=== PATIENT | female | born 1985 | race African-American/Black ===

== ENCOUNTER 2016-05-03 10:20 | Emergency (ER) | payer SELFPAY ==
[~2016-05-03] VITALS: Ht 152.4 cm; Wt 95.3 kg
[~2016-05-03 10:20] MED LIST: SULF1TAB24 PO
[2016-05-03] MEDS ORDERED: PREDNISONE 20 MG TABLET PO ONE (11:00)
[2016-05-03] MEDS ORDERED: DIPHENHYDRAMINE HCL 25 MG CAPSULE PO ONE (11:00)
[2016-05-03] MEDS ORDERED: FAMOTIDINE 20 MG TABLET. PO ONE (11:00)
[2016-05-03 11:15] VITALS: BP 162/104
--- NOTE | 2016-05-03 11:22 | PHYS DOC ---
Past Medical History Past Medical History: Asthma, Hypertension Additional Past Medical Histor: pre-eclampsia with pregnancies Past Surgical History: , Tubal ligation Alcohol Use: None Drug Use: None Adult General Chief Complaint Chief Complaint: ALLERGIC REACTION HPI HPI Patient is a 31 year old female with history of hypertension who presents today with an allergic reaction to carrots. Patient states yesterday she went to a local restaurant and ordered a salad, she states she informed them she is allergic to carrots, she states as she was eating the salad and noted some carrots in it. Patient states her throat started itching she developed a rash, she states her lips were also swollen, patient states she went home and took 2 Benadryl went to bed, she states her symptoms are slightly better but she is still itching. Review of Systems Review of Systems Constitutional: Denies fever or chills [] Eyes: Denies change in visual acuity, redness, or eye pain [] HENT: Denies nasal congestion or sore throat [] Respiratory: Denies cough or shortness of breath [] Cardiovascular: No additional information not addressed in HPI [] GI: Denies abdominal pain, nausea, vomiting, bloody stools or diarrhea [] : Denies dysuria or hematuria [] Musculoskeletal: Denies back pain or joint pain [] Integument: Rash and itching Neurologic: Denies headache, focal weakness or sensory changes [] Endocrine: Denies polyuria or polydipsia [] Current Medications Current Medications Current Medications Medications (Trade) Dose Ordered Sig/Leonel Start Time Stop Time Status Last Admin Dose Admin Diphenhydramine HCl (Benadryl) 25 mg 1X ONCE 05/03/16 11:00 05/03/16 11:04 DC Famotidine (Pepcid) 20 mg 1X ONCE 05/03/16 11:00 05/03/16 11:04 DC 05/03/16 11:21 20 MG Prednisone (Prednisone) 60 mg 1X ONCE 05/03/16 11:00 05/03/16 11:04 DC 05/03/16 11:21 60 MG Allergies Allergies Allergies Coded Allergies Type Severity Reaction Last Updated Verified carrot Allergy Severe Anaphylaxis 12/15/14 Yes Soap Allergy Intermediate Rash 08/12/15 Yes povidone-iodine Allergy Intermediate Rash 08/12/15 Yes Physical Exam Physical Exam Constitutional: Well developed, well nourished, no acute distress, non-toxic appearance. [] HENT: Normocephalic, atraumatic, bilateral external ears normal, oropharynx moist, no oral exudates, nose normal. No lip swelling noted, no throat swelling noted. Eyes: PERRLA, EOMI, conjunctiva normal, no discharge. [] Neck: Normal range of motion, no tenderness, supple, no stridor. [] Cardiovascular:Heart rate regular rhythm, no murmur [] Lungs & Thorax: Bilateral breath sounds clear to auscultation [] Abdomen: Bowel sounds normal, soft, no tenderness, no masses, no pulsatile masses. [] Skin: Warm, dry, no erythema, no rash, patient is actively itching, Back: No tenderness, no CVA tenderness. [] Extremities: No tenderness, no cyanosis, no clubbing, ROM intact, no edema. [] Neurologic: Alert and oriented X 3, normal motor function, normal sensory function, no focal deficits noted. [] Psychologic: Affect normal, judgement normal, mood normal. [] EKG EKG [] Radiology/Procedures Radiology/Procedures [] Course & Med Decision Making Course & Med Decision Making Pertinent Labs and Imaging studies reviewed. (See chart for details) Patient is in the ED with a rash due to an allergic reaction to carrots that began yesterday after eating carrots at a local restaurant. She is actively itching, she has no rash anywhere on her body. She has no lip or throat swelling , she has no difficulty breathing. She was given prednisone, Benadryl and Pepcid and discharged with the same. Her blood pressure was 162/104, she states she takes amlodipine and she ran out of it, I wrote her prescription for 2 weeks hopefully she can get into her PCP to get more refills. Dragon Disclaimer Dragon Disclaimer This electronic medical record was generated, in whole or in part, using a voice recognition dictation system. Departure Departure Impression: Primary Impression: Allergic reaction to food Additional Impressions: Medication refill Accelerated hypertension Disposition: 01 HOME, SELF-CARE Condition: STABLE Referrals: NO PCP (PCP) Follow-up with your own doctor in the next 7 days and get blood pressure medication refill Patient Instructions: Food Allergy, [id number] Additional Instructions: You were seen for an allergic reaction to carrots, please do not eat carrots. Take Benadryl every 4 hours until symptoms are gone. Take Pepcid every day until symptoms are gone. Complete your prednisone. Come back to the emergency room if symptoms worsen. Follow-up with your own doctor for high blood pressure. Scripts Prednisone 50 Mg Tablet1 Tab PO DAILY #4 TAB Prov:FEDERICO ULRICH APRN 05/03/16 Famotidine (Pepcid)20 Mg [id number] Mg PO DAILY #7 TAB Prov:FEDERICO ULRICH APRN 05/03/16 Amlodipine Besylate 10 Mg [id number] Mg PO DAILY #14 TAB Prov:FEDERICO ULRICH APRN 05/03/16 Problem Qualifiers Primary Impression: Allergic reaction to food Encounter type: initial encounter Qualified Code: T78.1XXA - Other adverse food reactions, not elsewhere classified, initial encounter FEDERICO ULRICH APRN May 03, 2016 11:22
[2016-05-03] MEDS ORDERED: FAMO-63 PO (11:30)
[2016-05-03] MEDS ORDERED: PRED50TA PO (11:30)
[2016-05-03] MEDS ORDERED: AMLO10TA2 PO (11:30)
== END 2016-05-03 11:38 | disposition home or self-care (01) ==
LOC: ER 10:20
DX: T78.1XXA Other adverse food reactions, not elsewhere classified, initial encounter (principal); L29.9 Pruritus, unspecified; I10 Essential (primary) hypertension; J45.909 Unspecified asthma, uncomplicated; X58.XXXA Exposure to other specified factors, initial encounter; Y93.89 Activity, other specified; Y99.8 Other external cause status; Y92.89 Other specified places as the place of occurrence of the external cause; Z91.041 Radiographic dye allergy status; Z88.8 Allergy status to other drugs, medicaments and biological substances; Z91.018 Allergy to other foods
CPT/HCPCS: 99283; J7512

== ENCOUNTER 2016-10-06 09:28 | Emergency (ER) | payer SELFPAY ==
[~2016-10-06] VITALS: Ht 144.8 cm; Wt 98.9 kg
[~2016-10-06 09:28] MED LIST changes: +AMLO10TA2 PO; +FAMO-63 PO; +HYDR-971 PO; +PRED50TA PO
[2016-10-06 09:37] VITALS: BP 144/80
[2016-10-06] MEDS ORDERED: CLIN150C14 PO (10:35)
[2016-10-06] MEDS ORDERED: FLUC150T PO (10:35)
--- NOTE | 2016-10-06 10:35 | PHYS DOC ---
Past Medical History Past Medical History: Asthma, Hypertension Additional Past Medical Histor: pre-eclampsia with pregnancies Past Surgical History: , Tubal ligation Alcohol Use: None Drug Use: None Adult General Chief Complaint Chief Complaint: EYE PROBLEMS HPI HPI Patient is a 31 year old female presents emergency department stating that she' s been having some pain and discomfort in the lower lid of her left eye. Patient states that she's been placing warm packs on the area. She's been taken Benadryl. She states the pain and discomfort started on Thursday. She denies any visual difficulty although she states that she is having irritation with eye due to the swelling. She states there is swelling down into her cheek area. She denies any drainage or discharge. She denies any upper respiratory infection or congestion. Review of Systems Review of Systems Constitutional: Denies fever or chills [] Eyes: Denies change in visual acuity, redness, complaint of left eye lower lid discomfort. HENT: Denies nasal congestion or sore throat [] Respiratory: Denies cough or shortness of breath [] Cardiovascular: No additional information not addressed in HPI [] GI: Denies abdominal pain, nausea, vomiting, bloody stools or diarrhea [] : Denies dysuria or hematuria [] Musculoskeletal: Denies back pain or joint pain [] Integument: Denies rash or skin lesions [] Neurologic: Denies headache, focal weakness or sensory changes [] Endocrine: Denies polyuria or polydipsia [] Allergies Allergies Allergies Coded Allergies Type Severity Reaction Last Updated Verified carrot Allergy Severe Anaphylaxis 12/15/14 Yes Soap Allergy Intermediate Rash 08/12/15 Yes povidone-iodine Allergy Intermediate Rash 08/12/15 Yes Physical Exam Physical Exam Constitutional: Well developed, well nourished, no acute distress, non-toxic appearance. [] HENT: Normocephalic, atraumatic, bilateral external ears normal, oropharynx moist, no oral exudates, nose normal. [] Eyes: PERRLA, EOMI, conjunctiva normal, no discharge. Patient was noted to have a stye on the lower lid of the left eye. She does have some swelling down into the cheek area with redness and tenderness noted. There is no drainage or discharge noted from the stye. Neck: Normal range of motion, no tenderness, supple, no stridor. [] Cardiovascular:Heart rate regular rhythm, no murmur [] Lungs & Thorax: Bilateral breath sounds clear to auscultation [] Skin: Warm, dry, no erythema, no rash. [] Back: No tenderness Extremities: No tenderness, no cyanosis, no clubbing, ROM intact, no edema. [] Neurologic: Alert and oriented X 3, normal motor function, normal sensory function, no focal deficits noted. [] Psychologic: Affect normal, judgement normal, mood normal. [] Current Patient Data Vital Signs Vital Signs Date Time Temp Pulse Resp B/P (MAP) Pulse Ox O2 Delivery O2 Flow Rate FiO2 10/06/16 09:37 98.3 89 18 99 Room Air 98.3 EKG EKG [] Radiology/Procedures Radiology/Procedures [] Course & Med Decision Making Course & Med Decision Making Pertinent Labs and Imaging studies reviewed. (See chart for details) Spoke with the patient about continuing warm moist packs to the left eye 4-5 times a day for 20 minutes at a time. Patient will be placed on antibiotics, clindamycin. Patient states that she gets yeast infections anytime she is on any antibiotics. She'll be provided with Diflucan. Patient will be provided with a work note today as she was unable to drive herself to [facility] and [place] to work. Patient was encouraged to use Tylenol or ibuprofen for pain and discomfort. Signs and symptoms to return back to emergency department has been provided. Patient agrees with discharge instructions treatment regimens and follow-up recommendations. [] Dragon Disclaimer Dragon Disclaimer This electronic medical record was generated, in whole or in part, using a voice recognition dictation system. Departure Departure Impression: Primary Impression: Hordeolum externum of left lower eyelid Disposition: HOME, SELF-CARE Condition: STABLE Referrals: NO PCP (PCP) Patient Instructions: Sty Additional Instructions: Warm moist packs to the left eye 4-5 times a day for 20 minutes at a time. Tylenol or ibuprofen for pain and discomfort. Antibiotics as prescribed. Follow-up with bilingual sales representative in the next week. Return back to emergency prior signs and symptoms that become worse. Scripts Fluconazole (DIFLUCAN) 150 Mg Tablet 1 TAB PO ONCE, #1 TAB 1 Refill Take 1 tablet when the symptoms start and may be repeated in 1 week Prov: GALE RECIO APRN 10/06/16 Clindamycin Hcl (CLINDAMYCIN HCL) 150 Mg Capsule 3 CAP PO TID for 10 Days, CAP Prov: GALE RECIO APRN 10/06/16 GALE RECIO APRN Oct 06, 2016 10:35
[2016-10-06] MEDS ORDERED: IBUPROFEN 800 MG TABLET. PO ONE ×2 (10:45→11:00)
== END 2016-10-06 10:49 | disposition home or self-care (01) ==
LOC: ER 09:28
DX: H00.015 Hordeolum externum left lower eyelid (principal); I10 Essential (primary) hypertension; J45.909 Unspecified asthma, uncomplicated; Z91.041 Radiographic dye allergy status; Z91.018 Allergy to other foods; Z88.8 Allergy status to other drugs, medicaments and biological substances
CPT/HCPCS: 99283

== ENCOUNTER 2016-11-25 09:26 | Emergency (ER) | payer SELFPAY ==
[~2016-11-25] VITALS: Ht 147.3 cm; Wt 98.9 kg
[~2016-11-25 09:26] MED LIST changes: +CLIN150C14 PO; +FLUC150T PO
[2016-11-25] MEDS ORDERED: IBUPROFEN 800 MG TABLET. PO ONE (10:00)
[2016-11-25 10:12] LABS: BILIRUBIN,URINE NEGATIVE (NEG); GLUCOSE,URINE NEGATIVE (NEG); NITRITE,URINE NEGATIVE (NEG); PH,URINE 8.5; PROTEIN,URINE 30 mg/dL (NEG-TRACE)
[2016-11-25 10:32] LABS: BACTERIA,URINE 0 /HPF (0-FEW); RBC,URINE TNTC /HPF (0-2)
[2016-11-25 10:34] LABS: BASO % 0 % (0-3); EOS % 3 % (0-3); HEMATOCRIT 24.4 % (36.0-47.0); HEMOGLOBIN 7.3 g/dL (12.0-15.5); LYMPH # 1.6 x10^3/uL (1.0-4.8); LYMPH % 32 % (24-48); MEAN CORPUSCULAR HEMOGLOBIN 16 pg (25-35); MEAN CORPUSCULAR HGB CONC 30 g/dL (31-37); MEAN CORPUSCULAR VOLUME 53 fL (79-100); MONO % 7 % (0-9); NEUT % 59 % (31-73); PLATELET COUNT 320 x10^3/uL (140-400); RED BLOOD COUNT 4.57 x10^6/uL (3.50-5.40); RED CELL DISTRIBUTION WIDTH 19.7 % (11.5-14.5); WHITE BLOOD COUNT 5.1 x10^3/uL (4.0-11.0)
[2016-11-25] MEDS ORDERED: PROM25TA10 PO (10:41)
[2016-11-25] MEDS ORDERED: TRAM-48 PO (10:41)
--- NOTE | 2016-11-25 10:41 | PHYS DOC ---
Past Medical History Past Medical History: Asthma, CVA, Hypertension Additional Past Medical Histor: pre-eclampsia with pregnancies Past Surgical History: , Tubal ligation Alcohol Use: None Drug Use: None Adult General Chief Complaint Chief Complaint: PELVIC PAIN HPI HPI Patient is a 31 year old female with history of hypertension and fibrosis presents today complaining of bilateral pelvic pain moderate in nature that began 3 days ago. Patient stated this is a typical pain during her menstrual cycle which began 3 days ago. Patient states she is waiting to be referred to by her own doctor to be seen by an GROUP SALES MANAGER. Patient denies soaking more than 1 feminine pad an hour. She states her periods are typically heavy and today's bleeding is not unusual. Patient denies any urgency frequency or dysuria. Review of Systems Review of Systems Constitutional: Denies fever or chills [] Eyes: Denies change in visual acuity, redness, or eye pain [] HENT: Denies nasal congestion or sore throat [] Respiratory: Denies cough or shortness of breath [] Cardiovascular: No additional information not addressed in HPI [] GI: Pelvic pain and vaginal bleeding : Denies dysuria or hematuria [] Musculoskeletal: Denies back pain or joint pain [] Integument: Denies rash or skin lesions [] Neurologic: Denies headache, focal weakness or sensory changes [] Endocrine: Denies polyuria or polydipsia [] Current Medications Current Medications Current Medications Medications (Trade) Dose Ordered Sig/Leonel Start Time Stop Time Status Last Admin Dose Admin Azithromycin (Zithromax) 1,000 mg 1X ONCE 11/25/16 10:45 11/25/16 10:47 DC 11/25/16 11:19 1,000 MG Ceftriaxone Sodium (Rocephin Im) 250 mg 1X ONCE 11/25/16 10:45 11/25/16 10:47 DC 11/25/16 11:19 250 MG Ibuprofen (Motrin) 800 mg 1X ONCE 11/25/16 10:00 11/25/16 10:04 DC Allergies Allergies Allergies Coded Allergies Type Severity Reaction Last Updated Verified carrot Allergy Severe Anaphylaxis 12/15/14 Yes Soap Allergy Intermediate Rash 08/12/15 Yes povidone-iodine Allergy Intermediate Rash 08/12/15 Yes Physical Exam Physical Exam Constitutional: Well developed, well nourished, no acute distress, non-toxic appearance. [] HENT: Normocephalic, atraumatic, bilateral external ears normal, oropharynx moist, no oral exudates, nose normal. [] Eyes: PERRLA, EOMI, conjunctiva normal, no discharge. [] Neck: Normal range of motion, no tenderness, supple, no stridor. [] Cardiovascular:Heart rate regular rhythm, no murmur [] Lungs & Thorax: Bilateral breath sounds clear to auscultation [] Abdomen: Bowel sounds normal, soft, no tenderness, no masses, no pulsatile masses. [] Pelvic exam External pelvic appears normal, cervix not well visualized. Small amount of bright red blood in the cervical OS, no adnexal tenderness, no CMT. Skin: Warm, dry, no erythema, no rash. [] Back: No tenderness, no CVA tenderness. [] Extremities: No tenderness, no cyanosis, no clubbing, ROM intact, no edema. [] Neurologic: Alert and oriented X 3, normal motor function, normal sensory function, no focal deficits noted. [] Psychologic: Affect normal, judgement normal, mood normal. [] Current Patient Data Vital Signs Vital Signs Date Time Temp Pulse Resp B/P (MAP) Pulse Ox O2 Delivery O2 Flow Rate FiO2 11/25/16 11:23 65 18 167/79 (108) 97 Room Air 11/25/16 09:30 97.9 97.9 Lab Values Laboratory Tests Test 11/25/16 08:56 11/25/16 09:40 11/25/16 10:08 POC Urine HCG, Qualitative Hcg negative (Negative) Urine Collection Type Unknown Urine Color Yellow Urine Clarity Clear Urine pH 8.5 Urine Specific [place] 1.010 Urine Protein 30 mg/dL (NEG-TRACE) Urine Glucose (UA) Negative mg/dL (NEG) Urine Ketones (Stick) Negative mg/dL (NEG) Urine Blood Large (NEG) Urine Nitrite Negative (NEG) Urine Bilirubin Negative (NEG) Urine Urobilinogen Dipstick 1.0 mg/dL (0.2 mg/dL) Urine Leukocyte Esterase Trace (NEG) Urine RBC Tntc /HPF (0-2) Urine WBC 1-4 /HPF (0-4) Urine Bacteria 0 /HPF (0-FEW) White Blood Count 5.1 x10^3/uL (4.0-11.0) Red Blood Count 4.57 x10^6/uL (3.50-5.40) Hemoglobin 7.3 g/dL (12.0-15.5) L Hematocrit 24.4 % (36.0-47.0) L Mean Corpuscular Volume 53 fL (79-100) L Mean Corpuscular Hemoglobin 16 pg (25-35) L Mean Corpuscular Hemoglobin Concent 30 g/dL (31-37) L Red Cell Distribution Width 19.7 % (11.5-14.5) H Platelet Count 320 x10^3/uL (140-400) Neutrophils (%) (Auto) 59 % (31-73) Lymphocytes (%) (Auto) 32 % (24-48) Monocytes (%) (Auto) 7 % (0-9) Eosinophils (%) (Auto) 3 % (0-3) Basophils (%) (Auto) 0 % (0-3) Neutrophils # (Auto) 3.0 x10^3uL (1.8-7.7) Lymphocytes # (Auto) 1.6 x10^3/uL (1.0-4.8) Monocytes # (Auto) 0.3 x10^3/uL (0.0-1.1) Eosinophils # (Auto) 0.1 x10^3/uL (0.0-0.7) Basophils # (Auto) 0.0 x10^3/uL (0.0-0.2) Platelet Estimate Pending Laboratory Tests 11/25/16 10:08 Microbiology 11/25/16 Wet Prep - Final, Complete EKG EKG [] Radiology/Procedures Radiology/Procedures [] Course & Med Decision Making Course & Med Decision Making Pertinent Labs and Imaging studies reviewed. (See chart for details) Patient is in the ED with complaints of pelvic pain. She is currently on her cycle. She has history of fibroids. She is waiting for her PCP to refer her to an GROUP SALES MANAGER. Wet prep is negative for any acute findings. Urine negative for infection, negative urine hCG. Discharged with [facility]. Provided an GROUP SALES MANAGER for follow-up. Her blood pressure was elevated 155/99. She states she has not taken her BP meds this morning. She was reminded to take her blood pressure medicine as soon as she gets home. He requested to be treated for STD. given Rocephin and azithromycin. Encouraged her to contact all the sex partners and let them know she was treated and have them treated too. Zulay Disclaimer Dragon Disclaimer This electronic medical record was generated, in whole or in part, using a voice recognition dictation system. Departure Departure Impression: Primary Impression: Accelerated hypertension Additional Impressions: Dysmenorrhea Concern about STD in female without diagnosis Disposition: HOME, SELF-CARE Condition: STABLE Referrals: UNKNOWN PCP NAME (PCP) YVONNE GUTIERREZ Jr, MD follow up with your OBGYN or your doctor as soon as you can Patient Instructions: Dysmenorrhea, Hypertension Additional Instructions: You were seen for pelvic pain during your cycles. We highly recommend you follow -up with an GROUP SALES MANAGER. Please come back to the ED if your bleeding is more than normal. Take the prescribed pain medicine as needed. Do not drive or operate machinery on the pain medications. Your blood pressure was high. Ensure you take your blood pressure medicines as soon as you get home Scripts Fluconazole (DIFLUCAN) 150 Mg Tablet 1 TAB PO ONCE, #1 TAB 1 Refill Prov: FEDERICO ULRICH APRN 11/25/16 Promethazine Hcl (PROMETHAZINE HCL) 25 Mg Tablet 1 TAB PO PRN Q6HRS, #20 TAB Prov: FEDERICO ULRICH APRN 11/25/16 Tramadol Hcl (ULTRAM) 50 Mg Tablet 1 TAB PO Q6HRS, #30 TAB Prov: FEDERICO ULRICH APRN 11/25/16 Problem Qualifiers FEDERICO ULRICH APRN Nov 25, 2016 10:41
[2016-11-25] MEDS ORDERED: AZITHROMYCIN 250 MG TABLET. PO ONE (10:45)
[2016-11-25] MEDS ORDERED: cefTRIAXone IM 250 MG VIAL IM ONE (10:45)
[2016-11-25 11:23] VITALS: BP 167/79
[2016-11-25] MEDS ORDERED: FLUC150T PO (11:26)
[2016-11-25 12:04] LABS: ANISOCYTOSIS MOD; PLT ESTIMATE ADEQUATE (ADEQUATE); POLYCHROMASIA SLIGHT
== END 2016-11-25 11:44 | disposition home or self-care (01) ==
LOC: ER 09:26
DX: I10 Essential (primary) hypertension (principal); N94.6 Dysmenorrhea, unspecified; Z20.2 Contact with and (suspected) exposure to infections with a predominantly sexual mode of transmission; J45.909 Unspecified asthma, uncomplicated; Z86.73 Personal history of transient ischemic attack (TIA), and cerebral infarction without residual deficits; Z91.041 Radiographic dye allergy status; Z91.018 Allergy to other foods; Z91.048 Other nonmedicinal substance allergy status
CPT/HCPCS: 36415; 81001; 81025; 85025; 87491; 87591; 96372; 99284; J0696; Q0111; Q0144

== ENCOUNTER 2017-01-11 21:33 | Emergency (ER) | payer SELFPAY ==
[~2017-01-11] VITALS: Ht 144.8 cm; Wt 98.9 kg
[~2017-01-11 21:33] MED LIST changes: +PROM25TA10 PO; +TRAM-48 PO
[2017-01-11 21:48] VITALS: BP 163/89
[2017-01-11] MEDS ORDERED: METH35.4 TP (21:59)
[2017-01-11] MEDS ORDERED: NAPR-695 PO (21:59)
--- NOTE | 2017-01-11 22:00 | PHYS DOC ---
Past Medical History Past Medical History: Asthma, CVA, Hypertension Additional Past Medical Histor: pre-eclampsia with pregnancies Past Surgical History: , Tubal ligation Alcohol Use: None Drug Use: None Adult General Chief Complaint Chief Complaint: SHOULDER INJURY HPI HPI Patient is a 31 year old female presents with complaints of pain around the right shoulder. No history of direct trauma or fall. No previous injury. Patient lives to most things around a lot at work so should these the your mind have occurred then. Patient has full range of motion but has some discomfort in the shoulder area when she moves it. She also has a little bit of discomfort in the right upper back with motion. Patient has no other complaints Review of Systems Review of Systems Constitutional: Denies fever or chills [] HENT: Denies pain Respiratory: Denies cough or shortness of breath [] Cardiovascular: No chest pain GI: Denies abdominal pain, Musculoskeletal: Right shoulder tenderness, right upper back tenderness. Integument: Denies rash or skin lesions [] Neurologic: Denies focal weakness or sensory changes [] All other systems reviewed and found to be negative unless otherwise stated Allergies Allergies Allergies Coded Allergies Type Severity Reaction Last Updated Verified carrot Allergy Severe Anaphylaxis 12/15/14 Yes Soap Allergy Intermediate Rash 08/12/15 Yes povidone-iodine Allergy Intermediate Rash 08/12/15 Yes Physical Exam Physical Exam Constitutional: Well developed, well nourished, no acute distress, non-toxic appearance. [] HENT: Normocephalic, atraumatic Eyes: EOMI, conjunctiva normal, no discharge. [] Neck: Normal range of motion, no tenderness, trachea midline, no stridor. [] Cardiovascular: Equal pulses, normal perfusion Lungs & Thorax: No respiratory distress, no tachypnea Abdomen: No distention Skin: Warm, dry, no erythema, no rash. [] Back: No tenderness, no CVA tenderness. No step-offs Extremities: No tenderness, no cyanosis, no clubbing, ROM intact, no edema. No evidence of septic joint Neurologic: Alert and oriented X 3, normal motor function, normal sensory function, no focal deficits noted. Normal strength Psychologic: Affect normal, judgement normal, mood normal. [] EKG EKG [] Radiology/Procedures Radiology/Procedures [] Course & Med Decision Making Course & Med Decision Making Pertinent Labs and Imaging studies reviewed. (See chart for details) Patient looks well and is in no distress, working with her cell phone when I enter the room and the exam. Patient is able to move her extremity without visible restrictions. The exam is very unremarkable. Importantly there are no signs of septic joint dislocation, trauma or deformity. I do not believe the patient is in need of imaging at this time and with anti-conservative treatment and anti-inflammatories. Patient is directed to follow-up with her primary care doctor for recheck and reevaluation in 2-4 days. The patient understands and agrees to follow-up as directed. [] Dragon Disclaimer Dragon Disclaimer This electronic medical record was generated, in whole or in part, using a voice recognition dictation system. Departure Departure Impression: Primary Impression: Shoulder pain, right Additional Impression: Musculoskeletal pain Disposition: HOME, SELF-CARE Condition: STABLE Referrals: UNKNOWN PCP NAME (PCP) Please follow-up with your PCP in 2-4 days for recheck and reevaluation. If your symptoms worsen or new concerning symptoms develop please see your doctor sooner or return to ED immediately Patient Instructions: Musculoskeletal Pain, Shoulder Pain, [id number] Scripts Methyl Salicylate/Menthol (ICY HOT CREAM) 35.4 Gm Cream..g. 35.4 GM TP TID for 5 Days, #15 EACH Prov: Iggy BOOKER MD 01/11/17 Naproxen (NAPROXEN) 375 Mg Tablet 1 TAB PO TID for 7 Days, #21 TAB 5 Refills Prov: Iggy BOOKER MD 01/11/17 Problem Qualifiers Iggy BOOKER MD Jan 11, 2017 22:00
[2017-01-11] MEDS ORDERED: IBUPROFEN 400 MG TABLET. PO ONE (22:30)
[2017-01-11] MEDS ORDERED: ACETAMINOPHEN 500 MG TABLET PO ONE (22:30)
== END 2017-01-11 22:16 | disposition home or self-care (01) ==
LOC: ER 21:33
DX: M25.511 Pain in right shoulder (principal); J45.909 Unspecified asthma, uncomplicated; I10 Essential (primary) hypertension; Z86.73 Personal history of transient ischemic attack (TIA), and cerebral infarction without residual deficits; Z91.018 Allergy to other foods; Z91.041 Radiographic dye allergy status; Z91.048 Other nonmedicinal substance allergy status
CPT/HCPCS: 99283